=== PATIENT | male | born 1980 | race Caucasian/White ===

== ENCOUNTER 2022-10-14 20:11 | Emergency (ER) | payer SELFPAY ==
[~2022-10-14 20:11] MED LIST: Iopamidol-370 76% 500 ML 1 ML ONE
[2022-10-14] MEDS ORDERED: Clindamycin/D5W 900 mg/50 ml Premix Bag ONE (20:33)
[2022-10-14] MEDS ORDERED: Morphine 4 MG/ML VIAL ONE (20:33)
[2022-10-14] MEDS ORDERED: Ketorolac Tromethamine 30 MG/ML VIAL ONE (20:33)
[2022-10-14 20:52] LABS: #Basophils 0.1 thou/uL (0.0-0.2); #Eosinphils 0.6 thou/uL (0.0-0.7); #Lymphocytes 1.7 thou/uL (1.20-3.40); #Monocytes 0.6 thou/uL (0.11-0.59); #Neutrophils 4.3 thou/uL (1.40-6.50); %Basophils 0.8 % (0.0-1.0); %Eosinophils 8.9 % (0.0-10.0); %Lymphocytes 22.9 % (21.0-51.0); %Monocytes 7.7 % (0.0-10.0); %Neutrophils 59.7 % (42.0-75.0); Hemoglobin 17.2 g/dL (14.0-18.0); Mean Corpuscular HGB CONC 34.4 g/dL (32.0-36.0); Mean Corpuscular Hemoglobin 34.1 pg (27.0-31.0); Mean Corpuscular Volume 99.1 fl (78.0-98.0); Mean Platelet Volume 6.7 fL (7.4-10.4); Platelet Count 228 10x3/uL (130-400); RBC Distribution Width 11.7 % (11.5-14.5); Red Blood Cell (RBC) Count 5.05 mill/uL (4.70-6.10); White Blood Cell (WBC) Count 7.2 10x3/uL (4.8-10.8)
[2022-10-14 21:01] LABS: Anion Gap 14 mmol/L (10-20); BUN (Urea Nitrogen) 11 mg/dL (8.9-20.6); Calc. Creatinine Clearance 0 mL/min (70-130); Calcium 9.2 mg/dL (7.8-10.44); Carbon Dioxide 23 mmol/L (22-29); Chloride 103 mmol/L (98-107); Estimated GFR 94; Glucose 121 mg/dL (70-105); Potassium 3.9 mmol/L (3.5-5.1); Sodium 136 mmol/L (136-145)
== END 2022-10-14 22:55 | disposition home or self-care (01) ==
LOC: ERS 20:11
DX: K13.79 Other lesions of oral mucosa (principal); L03.211 Cellulitis of face; K08.89 Other specified disorders of teeth and supporting structures; F17.210 Nicotine dependence, cigarettes, uncomplicated
CPT/HCPCS: 36415; 70487; 80048; 83605; 85025; 87040; 96374; 96375; J1885; J2270; J3490; Q9967

== ENCOUNTER 2023-10-24 14:03 | Inpatient (IN) | payer OTHER, BC ==
[2023-10-24 14:40] VITALS: BMI 40.6
[2023-10-24] MEDS ORDERED: Acetaminophen 325 MG TAB PO PRN (14:49)
[2023-10-24] MEDS ORDERED: Dextrose 50% Abboject 50 ML SYRINGE SLOW IVP PRN (14:49)
[2023-10-24] MEDS ORDERED: Glucagon 1 MG/ML KIT IM PRN (14:49)
[2023-10-24] MEDS ORDERED: Dextrose 5% in Water 1,000 ML IV PRN (14:49)
[2023-10-24] MEDS ORDERED: traMADol HCl 50 MG TAB PO PRN (14:49)
[2023-10-24] MEDS ORDERED: Ondansetron ODT 4 MG TAB PO PRN (14:52)
[2023-10-24] MEDS ORDERED: Ondansetron PF 4 MG/2 ML Vial IVP PRN (14:52)
[2023-10-24] MEDS ORDERED: Ipratropium/Albuterol 3 ML NEB NEB PRN (14:52)
[2023-10-24] MEDS ORDERED: Rib Fracture Protocol PO SCH (15:00)
[2023-10-24] MEDS ORDERED: Ibuprofen 600 MG TAB PO PRN (15:54)
[2023-10-24] MEDS ORDERED: HYDROcodone/Acetaminophen 5/325 mg Tablet PO PRN (15:56)
[2023-10-24] MEDS ORDERED: Benzocaine/Menthol 1 LOZ LOZ PO PRN (16:17)
[2023-10-24] MEDS: Acetaminophen 500 MG TAB PO SCH ×2 (16:39→22:28)
[2023-10-24] MEDS: traMADol HCl 50 MG TAB PO SCH ×2 (16:40→22:27)
[2023-10-24] MEDS: Cyclobenzaprine 10 MG TAB PO PRN (18:35)
[2023-10-24] MEDS ORDERED: Ipratropium/Albuterol 3 ML NEB NEB SCH (19:00)
[2023-10-24] MEDS: Enoxaparin 40 MG (0.4 mL) SYRINGE SC SCH (22:26)
[2023-10-24] MEDS: Famotidine 20 MG TAB PO SCH (22:27)
[2023-10-24] MEDS: Ibuprofen 200 MG TAB PO SCH (22:28)
[2023-10-24] MEDS: Gabapentin 300 MG CAP PO SCH (22:29)
[2023-10-24] MEDS: Transdermal Patch Removal TOP SCH (22:29)
[2023-10-25] MEDS: Cyclobenzaprine 10 MG TAB PO PRN ×2 (05:53→17:47)
[2023-10-25] MEDS: Acetaminophen 500 MG TAB PO SCH ×3 (05:53→17:47)
[2023-10-25] MEDS: traMADol HCl 50 MG TAB PO SCH ×3 (05:53→17:46)
[2023-10-25] MEDS: Ibuprofen 200 MG TAB PO SCH ×3 (05:54→20:43)
[2023-10-25 07:34] LABS: #Basophils 0.1 thou/uL (0.0-0.2); #Eosinphils 0.2 thou/uL (0.0-0.7); #Monocytes 0.4 thou/uL (0.11-0.59); #Neutrophils 5.5 thou/uL (1.40-6.50); %Basophils 0.7 % (0.0-1.0); %Eosinophils 3.3 % (0.0-10.0); %Lymphocytes 10.4 % (21.0-51.0); %Monocytes 6.3 % (0.0-10.0); %Neutrophils 78.9 % (42.0-75.0); Hematocrit 40.2 % (42.0-52.0); Hemoglobin 14.2 g/dL (14.0-18.0); Mean Corpuscular HGB CONC 35.3 g/dL (32.0-36.0); Mean Corpuscular Hemoglobin 32.9 pg (27.0-31.0); Mean Corpuscular Volume 93.1 fl (78.0-98.0); Mean Platelet Volume 8.7 fL (7.4-10.4); Platelet Count 175 10x3/uL (130-400); RBC Distribution Width 11.4 % (11.5-14.5); Red Blood Cell (RBC) Count 4.32 mill/uL (4.70-6.10)
[2023-10-25 07:56] LABS: Anion Gap 12 mmol/L (10-20); BUN (Urea Nitrogen) 10 mg/dL (8.9-20.6); Calc. Creatinine Clearance 216 mL/min (70-130); Calcium 8.4 mg/dL (7.8-10.44); Carbon Dioxide 24 mmol/L (22-29); Chloride 92 mmol/L (98-107); Estimated GFR 110; Glucose 127 mg/dL (70-105); Sodium 124 mmol/L (136-145)
[2023-10-25] MEDS: Enoxaparin 40 MG (0.4 mL) SYRINGE SC SCH ×2 (08:23→20:42)
[2023-10-25] MEDS: Famotidine 20 MG TAB PO SCH ×2 (08:23→20:42)
[2023-10-25] MEDS: Gabapentin 300 MG CAP PO SCH ×3 (08:23→20:42)
[2023-10-25] MEDS: Lidocaine 4% Patch TD SCH (11:56)
[2023-10-26] MEDS: Acetaminophen 500 MG TAB PO SCH ×2 (00:28→06:24)
[2023-10-26] MEDS: traMADol HCl 50 MG TAB PO SCH ×2 (00:30→06:22)
[2023-10-26] MEDS: Transdermal Patch Removal TOP SCH (00:32)
[2023-10-26] MEDS: Cyclobenzaprine 10 MG TAB PO PRN (04:36)
[2023-10-26] MEDS: Ibuprofen 200 MG TAB PO SCH ×2 (06:23→13:57)
[2023-10-26] MEDS: Gabapentin 300 MG CAP PO SCH (09:18)
[2023-10-26] MEDS: Famotidine 20 MG TAB PO SCH (09:18)
[2023-10-26] MEDS: Enoxaparin 40 MG (0.4 mL) SYRINGE SC SCH (09:18)
[2023-10-26] MEDS ORDERED: HYDROcodone/Acetaminophen 10/325 mg Tablet PO PRN ×2 (09:37)
[2023-10-26] MEDS: Lidocaine 4% Patch TD SCH (11:58)
[2023-10-26 13:44] VITALS: BP 116/75; TEMP 98.2
== END 2023-10-26 14:05 | disposition home or self-care (01) | DRG 184 ==
LOC: SURG A 14:03
PROVIDERS: ADMIT Surgery; ATTEND Surgery
DX: S22.41XA Multiple fractures of ribs, right side, initial encounter for closed fracture (principal); E87.1 Hypo-osmolality and hyponatremia; Z68.41 Body mass index [BMI] 40.0-44.9, adult; E66.9 Obesity, unspecified; F17.210 Nicotine dependence, cigarettes, uncomplicated; W19.XXXA Unspecified fall, initial encounter; Y92.89 Other specified places as the place of occurrence of the external cause
CPT/HCPCS: 36415; 71045; 80048; 85025; J1650